=== PATIENT | female | born 1975 | race Two or more races ===

== ENCOUNTER 2019-08-17 13:12 | Emergency (ER) | payer MEDICAID ==
[~2019-08-17] VITALS: Ht 162.6 cm; Wt 73.5 kg
[~2019-08-17 13:12] MED LIST: BENZTROPINE MESY2 MG PO; CEPHALEXIN500 MG ORAL; DIPHENHYDRAMINE25 M1 PO; HALOPERIDOL1 MG ORAL; LEXAPRO10 MG ORAL; LORAZEPAM2 MG ORAL; RISPERDAL1 MG PO; SERTRALINE HCL25 MG ORAL; ZOLPIDEM TARTRA10 MG ORAL; ZYPREXA10 MG ORAL
[2019-08-17 13:50] VITALS: BP 96/70
--- NOTE | 2019-08-17 14:02 | Emergency Room Report ---
History of Present Illness General Chief Complaint: Vaginal Source: Patient Present Illness HPI Patient is a 43-year-old female presents after possible vaginal foreign body. Patient had placed some toilet paper after vagina. She states she had recently started her menses. She reports having irregular periods. She denies any fever. She denies any vaginal discharge. Patient was sent in from facility. Patient denies any severe pain or fever. Allergies: Coded Allergies: HALOPERIDOL (Verified Allergy, 02/10/13) HALOPERIDOL LACTATE (Verified Allergy, 02/10/13) Patient History Last Menstrual Period: on her period Now: No Reviewed Nursing Documentation: PMH: Agreed; PSxH: Agreed Nursing Documentation-PMH Past Medical History: No History, Except For Hx Hypertension: Yes Review of Systems All Other Systems: negative except mentioned in HPI Physical Exam Vital Signs Date Time Temp Pulse Resp B/P (MAP) Pulse Ox O2 Delivery O2 Flow Rate FiO2 08/17/19 13:33 98.1 62 20 96/70 (79) 98 Room Air Sp02 EP Interpretation: reviewed, normal General Appearance: normal inspection, well appearing, no apparent distress, alert, GCS 15 Head: atraumatic ENT: normal ENT inspection, hearing grossly normal, normal voice Neck: normal inspection, full range of motion, supple, no bony tend Respiratory: normal inspection, lungs clear, normal breath sounds, no respiratory distress, no retraction, no wheezing Cardiovascular #1: regular rate, rhythm, no edema Gastrointestinal: normal inspection, normal bowel sounds, non tender, soft, no guarding, no hernia Genitourinary: no CVA tenderness, cervix normal, other - Foreign body x2 removed with forceps. Musculoskeletal: normal inspection, back normal, normal range of motion Neurologic: alert, motor strength/tone normal, stock roller III-XII nml as tested, oriented x3, responsive, speech normal, normal inspection Psychiatric: normal inspection, judgement/insight normal, mood/affect normal Skin: no rash Medical Decision Making Diagnostic Impression: Primary Impression: Vaginal foreign body ER Course Patient presented for vaginal foreign body. Differential diagnosis include was not limited to foreign body, toxic shock syndrome,, among others. Patient has a benign exam and does not appear to require any imaging or laboratory testing at this time. Vaginal foreign body was removed with forceps under direct visualization. There is no discharge noted. Patient tolerated this well. Patient be sent back to her facility. Last Vital Signs Date Time Temp Pulse Resp B/P (MAP) Pulse Ox O2 Delivery O2 Flow Rate FiO2 08/17/19 13:33 98.1 62 20 96/70 (79 98 Room Air Status: improved Disposition: HOME, SELF-CARE Condition: Stable Inder Dominique MD Aug 17, 2019 14:02
[2019-08-17 14:30] VITALS: BP 105/74
== END 2019-08-17 14:37 | disposition home or self-care (01) ==
LOC: EDBD 13:12 → EMR 14:00
DX: T19.2XXA Foreign body in vulva and vagina, initial encounter (principal); I10 Essential (primary) hypertension; X58.XXXA Exposure to other specified factors, initial encounter; Y93.9 Activity, unspecified; Y92.9 Unspecified place or not applicable; Z88.8 Allergy status to other drugs, medicaments and biological substances
CPT/HCPCS: 99282